=== PATIENT | male | born 1990 | race Caucasian/White ===

== ENCOUNTER 2018-12-09 09:46 | Emergency (ER) | payer OTHER ==
[2018-12-09 10:11] LABS: #Eosinphils 0.8 thou/uL (0.0-0.7); #Monocytes 0.8 thou/uL (0.11-0.59); #Neutrophils 7.7 thou/uL (1.40-6.50); %Basophils 0.4 % (0.0-1.0); %Eosinophils 6.8 % (0.0-10.0); %Lymphocytes 18.1 % (21.0-51.0); %Monocytes 6.6 % (0.0-10.0); %Neutrophils 68.2 % (42.0-75.0); Hemoglobin 16.4 g/dL (14.0-18.0); Mean Corpuscular HGB CONC 33.5 g/dL (32.0-36.0); Mean Corpuscular Hemoglobin 29.2 pg (27.0-31.0); Mean Platelet Volume 7.4 fL (7.4-10.4); Platelet Count 240 thou/uL (130-400); RBC Distribution Width 12.1 % (11.5-14.5); Red Blood Cell (RBC) Count 5.63 mill/uL (4.70-6.10); White Blood Cell (WBC) Count 11.3 thou/uL (4.8-10.8)
[2018-12-09 10:32] LABS: ALT (SGPT) 29 U/L (8-55); AST (SGOT) 17 U/L (5-34); Albumin 4.8 g/dL (3.5-5.0); Alkaline Phosphatase 89 U/L (40-150); Anion Gap 13 mmol/L (10-20); BUN (Urea Nitrogen) 10 mg/dL (8.9-20.6); Bilirubin, Total 0.6 mg/dL (0.2-1.2); Calc. Creatinine Clearance 0 mL/min (70-130); Calcium 9.7 mg/dL (7.8-10.44); Carbon Dioxide 25 mmol/L (22-29); Chloride 103 mmol/L (98-107); Estimated GFR-MDRD 72; Globulin 2.8 g/dL (2.4-3.5); Glucose 84 mg/dL (70-105); Lipase 44 U/L (8-78); Potassium 4.2 mmol/L (3.5-5.1); Protein, Total 7.6 g/dL (6.0-8.3); Sodium 137 mmol/L (136-145)
[2018-12-09] MEDS ORDERED: Morphine 4 MG/ML VIAL ONE (11:47)
[2018-12-09] MEDS ORDERED: Ondansetron PF 4 MG/2 ML Vial ONE (11:47)
--- NOTE | 2018-12-09 11:53 | RAD ---
EXAM: CHEST ONE VIEW HISTORY: Abdominal pain with nausea vomiting and diarrhea. Onset of symptoms 5 days ago. COMPARISON: None FINDINGS: The cardiac silhouette and pulmonary vasculature is within normal limits. The lungs are clear. The os seous structures are intact. IMPRESSION: No acute cardiopulmonary process.
--- NOTE | 2018-12-09 14:09 | CT ---
ABDOMEN CT WITH CONTRAST PELVIC CT WITH COTNRAST: HISTORY: Stomach pain. Sharp and burning in nature. Pain worsens by eating. Nausea, vomiting, and diarrhea, x 5 days. FINDINGS: ABDOMEN CT: Lung bases are clear. Normal heart size. No significant pericardial fluid. Visualized aorta has a normal caliber. Portal vein is patent. Unremarkable gallbladder. Liver, spleen, pancreas, and adrenal glands have appropriate attenuation and enhancement. Note, the left hepatic lobe is quite prominent but still has appropriate attenuation. No gastrohepatic, retrocrural, or periportal lymphadenopathy. Umbilical hernia containing mesenteric fat. No mesenteric mass, lymphadenopathy, free air, or free fluid. There are a few scattered nonspecific mesenteric, and periaortic lymph nodes. Symmetric enhancement of the kidneys. Bilaterally, no obstructive uropathy. Limited evaluation of the alimentary canal by lack of oral contrast. There are multiple fluid-filled small bowel loops which are upper normal in caliber. No drea evidence of bowel dilatation. Ileoce manuel junction is normal. Normal-caliber appendix. There are scattered diverticula throughout the col on. No evidence of diverticulitis. Mucosal prominence of the colon is presumed to be due to inadequ ate distention. CT PELVIS: No mass, lymphadenopathy, free air, or free fluid. The urinary bladder is unremarkable. No lytic or blastic lesions in the osseous structures. Vacuum disk phenomenon in the lumbosacral rosalind ction. IMPRESSION: 1. No acute abnormality in the abdomen or pelvis. 2. Scattered retroperitoneal as well as mesenteric lymph nodes which are nonspecific and within the upper limits of normal. Correlate clinically. 3. A few scattered small bowel loops which are fluid-filled but not necessary distended or dilated. Significance is uncertain. Small bowel series can be performed nonemergently if clinically warrante d. POS: [facility] [place]
--- NOTE | 2018-12-10 12:56 | EKG ---
Test Reason : Blood Pressure : / mmHG Vent. Rate : 046 BPM Atrial Rate : 046 BPM P-R Int : 148 ms QRS Dur : 086 ms QT Int : 474 ms P-R-T Axes : 031 017 025 degrees QTc Int : 414 ms Sinus bradycardia with sinus arrhythmia Otherwise normal ECG Confirmed by APARNA JIMENEZ, FERNIE ([id number]), editor newspaper MELANIE GEE ([id number]) on 12/10/2018 12:56:20 PM Referred By: Confirmed By:FERNIE BRAUN MD
== END 2018-12-09 13:40 | disposition home or self-care (01) ==
LOC: ERS 09:46
DX: I88.0 Nonspecific mesenteric lymphadenitis (principal)
CPT/HCPCS: 36415; 71045; 74177; 80053; 82550; 83690; 84484; 85025; 93005; 96361; 96374; 96375; J2270; J2405